=== PATIENT | male | born 1975 | race African-American/Black ===

== ENCOUNTER 2018-05-28 04:52 | Emergency (ER) | payer SELFPAY ==
[~2018-05-28] VITALS: Ht 177.8 cm; Wt 86.2 kg
--- NOTE | 2018-05-28 05:40 | PHYS DOC ---
Past Medical History Past Medical History: Hypertension Additional Past Medical Histor: AYALA Past Surgical History: No Surgical History Alcohol Use: Rarely Drug Use: None Adult General Chief Complaint Chief Complaint: LOWER EXTREMITY SWELLING HPI HPI Patient is a 42-year-old male who presents complaint of ongoing right shoulder pain. Patient was seen here yesterday and was diagnosed with a proximal humerus fracture. Patient states that he is having a difficult time sleeping and is not able to tolerate the pain. Patient also indicates that he just noticed that he has swelling in his legs. He denies any chest pain or shortness of breath. He rates pain in his shoulder right now to 9 out of 10. Patient states that he is not able to move the shoulder due to pain. Review of Systems Review of Systems Constitutional: Denies fever or chills [] Respiratory: Denies cough or shortness of breath [] Cardiovascular: No additional information not addressed in HPI [] Musculoskeletal: Complains of right shoulder pain [] Neurologic: Denies headache, focal weakness or sensory changes [] Current Medications Current Medications Current Medications Medications (Trade) Dose Ordered Sig/Samuel Start Time Stop Time Status Last Admin Dose Admin Lorazepam (Ativan) 1 mg 1X ONCE 05/28/18 07:30 05/28/18 07:31 DC 05/28/18 07:34 1 MG Orphenadrine Citrate (Norflex) 60 mg 1X ONCE 05/28/18 09:15 05/28/18 09:16 DC 05/28/18 09:23 60 MG Oxycodone/ Acetaminophen (Percocet 5/325) 1 tab 1X ONCE 05/28/18 09:15 05/28/18 09:21 DC 05/28/18 09:30 1 TAB Oxycodone/ Acetaminophen (Percocet 7.5/ 325) 1 tab 1X ONCE 05/28/18 06:00 05/28/18 06:01 DC 05/28/18 05:47 1 TAB Potassium Chloride/Dextrose/ Sod Cl 1,000 ml @ 250 mls/hr 1X ONCE 05/28/18 06:30 05/28/18 09:50 DC 05/28/18 06:29 250 MLS/HR Potassium Chloride (Klor-Con) 40 meq 1X ONCE 05/28/18 07:15 05/28/18 07:16 DC 05/28/18 07:33 40 MEQ Allergies Allergies Allergies Coded Allergies Type Severity Reaction Last Updated Verified No Known Drug Allergies 05/27/18 No Physical Exam Physical Exam Constitutional: Well developed, well nourished, no acute distress, non-toxic appearance. [] HENT: Normocephalic, atraumatic. [] Eyes: PERRLA, EOMI, conjunctiva normal, no discharge. [] Neck: Normal range of motion, no tenderness, supple, no stridor. [] Cardiovascular: Mildly tachycardic rate with regular rhythm, no murmur [] Lungs & Thorax: Bilateral breath sounds clear to auscultation [] Extremities: Patient is in her right sided shoulder immobilizer. Range of motion of shoulder not tested due to no fracture. [] Neurologic: Alert and oriented X 3, normal motor function, normal sensory function, no focal deficits noted. [] Physical exam Crane: Constitutional: Well developed, well nourished, non-toxic appearance, reports pain to right arm with known fracture Cardiovascular: Tachycardia, no murmur [] Lungs & Thorax: Bilateral breath sounds clear to auscultation [] Extremities: RUE in sling, right radial pulse +2, CR < 2 sec, BLE edema +1, no calf tenderness Neurologic: Alert and oriented X 3, normal motor function, normal sensory function, no focal deficits noted. [] Current Patient Data Vital Signs Vital Signs Date Time Temp Pulse Resp B/P (MAP) Pulse Ox O2 Delivery O2 Flow Rate FiO2 05/28/18 09:00 78 18 138/77 (97) 99 Room Air 05/28/18 04:57 97.5 97.5 Lab Values Laboratory Tests Test 05/28/18 05:31 White Blood Count 19.1 x10^3/uL (4.0-11.0) H Red Blood Count 4.00 x10^6/uL (4.30-5.70) L Hemoglobin 11.9 g/dL (13.0-17.5) L Hematocrit 34.6 % (39.0-53.0) L Mean Corpuscular Volume 87 fL (79-100) Mean Corpuscular Hemoglobin 30 pg (25-35) Mean Corpuscular Hemoglobin Concent 34 g/dL (31-37) Red Cell Distribution Width 14.0 % (11.5-14.5) Platelet Count 399 x10^3/uL (140-400) Neutrophils (%) (Auto) 86 % (31-73) H Lymphocytes (%) (Auto) 8 % (24-48) L Monocytes (%) (Auto) 6 % (0-9) Eosinophils (%) (Auto) 0 % (0-3) Basophils (%) (Auto) 0 % (0-3) Neutrophils # (Auto) 16.4 x10^3uL (1.8-7.7) H Lymphocytes # (Auto) 1.5 x10^3/uL (1.0-4.8) Monocytes # (Auto) 1.1 x10^3/uL (0.0-1.1) Eosinophils # (Auto) 0.1 x10^3/uL (0.0-0.7) Basophils # (Auto) 0.1 x10^3/uL (0.0-0.2) Segmented Neutrophils % 85 % (35-66) H Band Neutrophils % 3 % (0-9) Lymphocytes % 7 % (24-48) L Monocytes % 5 % (0-10) Platelet Estimate Adequate (ADEQUATE) Sodium Level 136 mmol/L (136-145) Potassium Level 2.6 mmol/L (3.5-5.1) *L Chloride Level 95 mmol/L (98-107) L Carbon Dioxide Level 30 mmol/L (21-32) Anion Gap 11 (6-14) Blood Urea Nitrogen 16 mg/dL (8-26) Creatinine 1.0 mg/dL (0.7-1.3) Estimated GFR (Cockcroft-Gault) 99.2 BUN/Creatinine Ratio 16 (6-20) Glucose Level 129 mg/dL (70-99) H Calcium Level 10.2 mg/dL (8.5-10.1) H Magnesium Level 2.1 mg/dL (1.8-2.4) Total Bilirubin 0.7 mg/dL (0.2-1.0) Aspartate Amino Transferase (AST) 49 U/L (15-37) H Alanine Aminotransferase (ALT) 28 U/L (16-63) Alkaline Phosphatase 117 U/L (46-116) H MD-Czb-G-Type Natriuretic Peptide 43 pg/mL (0-124) Total Protein 8.7 g/dL (6.4-8.2) H Albumin 3.8 g/dL (3.4-5.0) Albumin/Globulin Ratio 0.8 (1.0-1.7) L Laboratory Tests 05/28/18 05:31 Laboratory Tests 05/28/18 05:31 EKG EKG [] Radiology/Procedures Radiology/Procedures PROCEDURE: CHEST AP ONLY AP chest x-ray HISTORY: Difficulty breathing and coughing. FINDINGS: Heart size normal. Mediastinal silhouette is normal. No pneumothorax, pulmonary opacities or pleural effusions. Bones are unremarkable. IMPRESSION: No acute process. Electronically signed by: Wojciech Figueroa MD (05/28/2018 7:51 AM) [facility] PROCEDURE: VENOUS LOWER EXT BILATERAL Bilateral lower extremity venous duplex Doppler ultrasound HISTORY: Bilateral leg edema. TECHNIQUE: Grayscale and duplex Doppler sonography were utilized. FINDINGS: No DVT evident by grayscale sonography with compressibility, patent color Doppler blood flow and augmentation of blood flow the bilateral common femoral veins, profunda femoral veins, superficial femoral veins, and popliteal veins. No DVT evident with patent color Doppler blood flow the posterior tibial and peroneal veins in the calves. IMPRESSION: Negative legs for DVT. Course & Med Decision Making Course & Med Decision Making Pertinent Labs and Imaging studies reviewed. (See chart for details) CRANE 0600- Sign out received from Dr. Webb for patient with known right proximal humeral fracture now with BLE edema. Labs reviewed. Potassium replaced. Venous doppler of BLE pending at time of sign out. Patient seen and evaluated by myself. Pain addressed. Anxiety also addressed. CXR ordered due to report of cough and without acute process. Venous dopplers negative for acute DVT. Patient changed to shoulder immobilizer from sling with improvement of discomfort. Compression stockings also provided and applied with improvement of symptoms. Patient stable for discharge home with outpatient follow-up with PCP and orthopedics. Discussed findings and plan with patient, who acknowledges understanding and agreement. Dragon Disclaimer Dragon Disclaimer This electronic medical record was generated, in whole or in part, using a voice recognition dictation system. Splinting Splinting : Location: RUE Pre-Made Type: shoulder immobilizer Pre-Proc Neuro Vasc Exam: normal Post-Proc Neuro Vasc Exam: normal, unchanged from pre-exam Departure Departure Impression: Primary Impression: Bilateral lower extremity edema Additional Impressions: History of humerus fracture Anxiety Hypokalemia Disposition: 01 HOME, SELF-CARE Condition: STABLE Referrals: UNKNOWN PCP NAME (PCP) Patient Instructions: Anxiety and Panic Attacks, [id number], Hypokalemia, Peripheral Edema, Potassium Content of Foods, Shoulder Fracture (Proximal Humerus or Glenoid)-SportsMed Additional Instructions: Please follow with your orthopedic doctor regarding your known humerus fracture. Please make an appointment with a family doctor for evaluation of your anxiety and for re-evaluation of your potassium levels. Scripts Potassium Chloride (POTASSIUM CHLORIDE) 20 Meq Tablet.er 20 MEQ PO DAILY, #7 TAB.SR Prov: MANE CRANE DO 05/28/18 Problem Qualifiers EZRA WEBB Jr. DO May 28, 2018 05:40 MANE CRANE DO May 28, 2018 08:23
[2018-05-28 05:44] LABS: BASO # 0.1 x10^3/uL (0.0-0.2); BASO % 0 % (0-3); EOS # 0.1 x10^3/uL (0.0-0.7); EOS % 0 % (0-3); HEMATOCRIT 34.6 % (39.0-53.0); HEMOGLOBIN 11.9 g/dL (13.0-17.5); LYMPH # 1.5 x10^3/uL (1.0-4.8); LYMPH % 8 % (24-48); MEAN CORPUSCULAR HEMOGLOBIN 30 pg (25-35); MEAN CORPUSCULAR HGB CONC 34 g/dL (31-37); MEAN CORPUSCULAR VOLUME 87 fL (79-100); MONO # 1.1 x10^3/uL (0.0-1.1); MONO % 6 % (0-9); NEUT # 16.4 x10^3uL (1.8-7.7); NEUT % 86 % (31-73); PLATELET COUNT 399 x10^3/uL (140-400); WHITE BLOOD COUNT 19.1 x10^3/uL (4.0-11.0)
[2018-05-28] MEDS ORDERED: oxyCODONE/APAP 7.5/325 1 TAB TABLET PO ONE (06:00)
[2018-05-28 06:01] LABS: ALBUMIN 3.8 g/dL (3.4-5.0); ALBUMIN/GLOBULIN RATIO 0.8 (1.0-1.7); CALCIUM 10.2 mg/dL (8.5-10.1); GFR 99.2; TOTAL BILIRUBIN 0.7 mg/dL (0.2-1.0); TOTAL PROTEIN 8.7 g/dL (6.4-8.2)
[2018-05-28 06:14] LABS: POTASSIUM 2.6 mmol/L (3.5-5.1)
[2018-05-28] MEDS ORDERED: POTASSIUM CL 20MEQ D5-0.45NACL 1,000 ML IV ONE (06:30)
[2018-05-28] MEDS ORDERED: POTASSIUM CHLORIDE 20 MEQ TABLET.ER. PO ONE (07:15)
--- NOTE | 2018-05-28 07:54 | RAD ---
AP chest x-ray HISTORY: Difficulty breathing and coughing. FINDINGS: Heart size normal. Mediastinal silhouette is normal. No pneumothorax, pulmonary opacities or pleural effusions. Bones are unremarkable. IMPRESSION: No acute process. Electronically signed by: Wojciech Figueroa MD (05/28/2018 7:51 AM) [facility]
--- NOTE | 2018-05-28 08:56 | RAD ---
Bilateral lower extremity venous duplex Doppler ultrasound HISTORY: Bilateral leg edema. TECHNIQUE: Grayscale and duplex Doppler sonography were utilized. FINDINGS: No DVT evident by grayscale sonography with compressibility, patent color Doppler blood flow and augmentation of blood flow the bilateral common femoral veins, profunda femoral veins, superficial femoral veins, and popliteal veins. No DVT evident with patent color Doppler blood flow the posterior tibial and peroneal veins in the calves. IMPRESSION: Negative legs for DVT. Electronically signed by: Wojciech Figueroa MD (05/28/2018 8:52 AM) [facility]
[2018-05-28 09:00] VITALS: BP 138/77
[2018-05-28] MEDS ORDERED: POTA20TA82 PO (09:02)
[2018-05-28] MEDS ORDERED: ORPHENADRINE CITRATE 60 MG/2 ML VIAL. IV ONE (09:15)
[2018-05-28] MEDS ORDERED: oxyCODONE/APAP 5/325 1 TAB TABLET PO ONE (09:15)
[2018-05-28 11:59] LABS: % BANDS 3 % (0-9); % LYMPHS 7 % (24-48); % MONOS 5 % (0-10); % SEGS 85 % (35-66); PLT ESTIMATE ADEQUATE (ADEQUATE)
== END 2018-05-28 09:50 | disposition home or self-care (01) ==
LOC: ER 04:52
DX: S42.201D Unspecified fracture of upper end of right humerus, subsequent encounter for fracture with routine healing (principal); M25.511 Pain in right shoulder; R60.0 Localized edema; F41.9 Anxiety disorder, unspecified; E87.6 Hypokalemia; I10 Essential (primary) hypertension; X58.XXXD Exposure to other specified factors, subsequent encounter
CPT/HCPCS: 29105; 36415; 71045; 80053; 83735; 83880; 85007; 85025; 93970; 96365; 96375; 99284; J2060; J2360